=== PATIENT | female | born 1955 | race Caucasian/White ===

== ENCOUNTER 2021-03-31 07:48 | Observation (INO) | payer MEDICARE ==
[2021-03-26 11:48] LABS: BASOPHILS # (AUTO) 0.1 (0.0-0.1); BASOPHILS % 0.5 % (0.0-1.0); EOSINOPHILS # (AUTO) 0.3 (0.0-0.4); EOSINOPHILS % 2.6 % (0.0-6.0); HEMATOCRIT 39.9 % (34.2-44.1); HEMOGLOBIN 13.3 g/dL (12.0-16.0); LYMPHOCYTES # (AUTO) 2.2 (1.0-3.2); LYMPHOCYTES % 20.3 % (18.0-39.1); MEAN CORPUSCULAR HEMOGLOBIN 34.1 pg (28-32); MEAN CORPUSCULAR HGB CONC 33.3 g/dL (31-35); MEAN CORPUSCULAR VOLUME 102.3 fL (81-99); MONOCYTES # (AUTO) 0.7 (0.2-0.8); MONOCYTES % 5.9 % (4.4-11.3); NEUTROPHILS # (AUTO) 7.8 (2.1-6.9); NEUTROPHILS % 70.3 % (38.7-80.0); PLATELET COUNT 263 x10e3/uL (140-360); RED CELL DISTRIBUTION WIDTH 13.2 % (11.7-14.4)
[2021-03-26 14:50] LABS: ANION GAP 19.1 mmol/L (8-16); CALCIUM 9.3 mg/dL (8.4-10.2); CREATININE, SERUM 1.21 mg/dL (0.57-1.11); POTASSIUM 5.1 mmol/L (3.5-5.1)
[~2021-03-31] VITALS: Ht 172.7 cm; Wt 108.9 kg
[~2021-03-31 07:48] MED LIST: ALBUTEROL INH; BUSPIRONE HCL10 MG PO; DULERA 200 MCG/13 GM INH; EFFEXOR XR150 MG PO; GLIMEPIRIDE2 MG PO; HYDROCODON-ACE1 EAC9 PO; LISINOPRIL10 MG PO; MIRAPEX0.25 MG PO; MULTI-VITAMIN1 EACH PO; NEURONTIN300 MG PO; NORVASC10 MG PO; NUVIGIL250 MG PO; PRILOSEC OTC20 MG PO; SODIUM CHLORIDE 0.9% 500ML 500 ML ONE; SYNTHROID50 MCG PO; TIZANIDINE HCL4 M1 PO; TOPROL XL100 MG PO; TRANEXAMIC ACID 1,000 MG/10 ML ML ONE; TRAZODONE HCL100 MG PO; VANCOMYCIN HCL 1,000 MG ONE; ZOCOR40 MG PO
[2021-03-31] MEDS ORDERED: ROPIVACAINE 246.25 MG, EPINEPHRINE HCL 1:1000 1ML 0.5 MG, CLONIDINE HCL 0.08 MG in SODI... INJ ONE (08:00)
[2021-03-31] MEDS ORDERED: CELECOXIB 200 MG CAP ONE (08:23)
[2021-03-31] MEDS ORDERED: GABAPENTIN 300 MG CAP ONE (08:24)
[2021-03-31] MEDS ORDERED: DEXAMETHASONE SOD PHOS 10 MG/1 ML VIAL ONE (08:24)
[2021-03-31] MEDS ORDERED: CEFAZOLIN SOD 1 GM/NS 50ML 100 ML IV ONE (08:24)
[2021-03-31] MEDS ORDERED: TRANEXAMIC ACID 1,000 MG/10 ML ML ONE (09:00)
[2021-03-31] MEDS ORDERED: VANCOMYCIN HCL 1,000 MG ONE (09:00)
[2021-03-31] MEDS ORDERED: SODIUM CHLORIDE 0.9% 500ML 500 ML ONE (09:01)
[2021-03-31] MEDS ORDERED: DOCUSATE SODIUM 100 MG CAP PO PRN (11:15)
[2021-03-31] MEDS ORDERED: ONDANSETRON HCL INJ 2MG/ML 2ML 2 MG/ML VIAL IV PRN (11:15)
[2021-03-31] MEDS ORDERED: ACETAMINOPHEN 650 MG SUPP PR PRN (11:15)
[2021-03-31] MEDS ORDERED: HYDROCODONE/APAP 5MG-325MG TAB PO PRN (11:15)
[2021-03-31] MEDS ORDERED: KETOROLAC TROMETHAMINE 30 MG/ML VIAL IV PRN (11:15)
[2021-03-31] MEDS ORDERED: DIPHENHYDRAMINE HCL INJ 50 MG/ML VIAL IV PRN (11:15)
[2021-03-31] MEDS ORDERED: PROPOFOL IV EMULSION 10 MG/ML 20 ML VIAL ONE (11:30)
[2021-03-31] MEDS ORDERED: ROCURONIUM BROMIDE 10 MG/ML 5ML VIAL IV ONE (11:30)
[2021-03-31] MEDS ORDERED: DEXAMETHASONE SOD PHOS INJ 4 MG/ML VIAL ONE (11:30)
[2021-03-31] MEDS ORDERED: GLYCOPYRROLATE INJ 0.2 MG/ML VIAL ONE (11:30)
[2021-03-31] MEDS ORDERED: ONDANSETRON HCL INJ 2MG/ML 2ML 2 MG/ML VIAL ONE (11:30)
[2021-03-31] MEDS ORDERED: SEVOFLURANE INHAL SOLN 250 ML PEN BTL ONE (11:30)
[2021-03-31] MEDS ORDERED: NEOSTIGMINE 1 MG/ML 10ML VIAL ONE (11:30)
[2021-03-31] MEDS ORDERED: POVIDONE IODINE 0.05% 0.05 % ML PO ONE (11:30)
[2021-03-31] MEDS ORDERED: LIDOCAINE HCL 2% LOCAL INJ 5 ML SDV VIAL INJ ONE (11:30)
[2021-03-31] MEDS ORDERED: HYDROMORPHONE 1MG/1ML INJ ONE (11:48)
[2021-03-31] MEDS ORDERED: FENTANYL CITRATE/PF 100MCG/2 ML INJ ONE ×2 (12:04→14:28)
[2021-03-31 15:04] VITALS: BP 155/87
[2021-03-31 15:05] VITALS: BP 155/87
[2021-03-31 15:22] VITALS: BP 155/87
[2021-03-31] MEDS ORDERED: ACETAMINOPHEN 1000 MG/100 ML IV PRN (16:00)
[2021-03-31] MEDS: ASPIRIN 325 MG TAB PO SCH (16:16)
[2021-03-31] MEDS: CELECOXIB 100 MG CAP PO SCH (16:17)
[2021-03-31] MEDS: SODIUM CHLORIDE 0.9% 1000ML 1,000 ML IV SCH ×2 (16:41→21:15)
[2021-03-31] MEDS ORDERED: INSULIN LISPRO 100 UNIT/1 ML 3ML VIAL SQ ONE (17:00)
[2021-03-31] MEDS ORDERED: DEXTROSE 50% SYRINGE 50 ML IV PRN (17:00)
[2021-03-31] MEDS: CEFAZOLIN SOD 1 GM/NS 50ML 50 ML IV SCH (17:05)
[2021-03-31] MEDS: HYDROCODONE/APAP 7.5MG-325MG 1 EA TAB PO PRN ×2 (17:15→21:57)
[2021-03-31 20:00] VITALS: BP 150/78
[2021-03-31] MEDS ORDERED: ZOLPIDEM TARTRATE 5 MG TAB PO PRN (21:00)
[2021-03-31] MEDS: INSULIN LISPRO 100 UNIT/1 ML 3ML VIAL SQ SCH (22:05)
[2021-04-01] VITALS: BP 151/78
[2021-04-01] MEDS: CEFAZOLIN SOD 1 GM/NS 50ML 50 ML IV SCH ×2 (02:12→10:32)
[2021-04-01 04:00] VITALS: BP 163/82
[2021-04-01] MEDS: HYDROCODONE/APAP 7.5MG-325MG 1 EA TAB PO PRN (04:57)
[2021-04-01 05:18] LABS: HEMATOCRIT 36.4 % (34.2-44.1); HEMOGLOBIN 12.3 g/dL (12.0-16.0)
[2021-04-01] MEDS ORDERED: LEVOTHYROXINE SODIUM 25 MCG TABLET PO SCH (06:30)
[2021-04-01] MEDS: SODIUM CHLORIDE 0.9% 1000ML 1,000 ML IV SCH (07:15)
[2021-04-01] MEDS: CELECOXIB 100 MG CAP PO SCH (08:08)
[2021-04-01] MEDS: ASPIRIN 325 MG TAB PO SCH (08:09)
[2021-04-01] MEDS: INSULIN LISPRO 100 UNIT/1 ML 3ML VIAL SQ SCH (08:15)
[2021-04-01 08:57] VITALS: BP 158/78
[2021-04-01] MEDS ORDERED: METOPROLOL SUCCINATE 50 MG TAB XL PO SCH (09:00)
[2021-04-01] MEDS ORDERED: GABAPENTIN 300 MG CAP PO SCH (09:00)
[2021-04-01] MEDS ORDERED: AMLODIPINE BESYLATE 10 MG TAB PO SCH (09:00)
[2021-04-01] MEDS ORDERED: VENLAFAXINE HCL 75 MG CAPCR PO SCH (09:00)
[2021-04-01] MEDS ORDERED: LISINOPRIL 20 MG TAB PO SCH (09:00)
[2021-04-01 09:01] VITALS: BP 158/78
[2021-04-01] MEDS ORDERED: ONDANSETRON HCL 4 MG ORAL DISINTEGRATING TAB PO PRN (10:00)
[2021-04-01] MEDS ORDERED: SIMVASTATIN 40 MG TAB PO SCH (21:00)
== END 2021-04-01 11:47 | disposition home or self-care (01) ==
LOC: OR 07:48 → PACU V 11:04 → MED/SURG 14:56
PROVIDERS: ADMIT Specialist; ATTEND Specialist
DX: M17.12 Unilateral primary osteoarthritis, left knee (principal); Z01.812 Encounter for preprocedural laboratory examination; Z88.8 Allergy status to other drugs, medicaments and biological substances; E03.9 Hypothyroidism, unspecified; F41.9 Anxiety disorder, unspecified; G47.33 Obstructive sleep apnea (adult) (pediatric); M48.00 Spinal stenosis, site unspecified; E11.22 Type 2 diabetes mellitus with diabetic chronic kidney disease; I12.9 Hypertensive chronic kidney disease with stage 1 through stage 4 chronic kidney disease, or unspecified chronic kidney disease; N18.30 Chronic kidney disease, stage 3 unspecified; E78.5 Hyperlipidemia, unspecified; D64.9 Anemia, unspecified; Z91.040 Latex allergy status
CPT/HCPCS: 27447; 36415 ×3; 71046; 73560; 80048; 82948 ×2; 85014; 85018; 85025; 86850; 86900; 93005; 97116 ×2; 97161; 97530; C1713 ×2; C1776 ×4; G0378 ×2; J0171; J0690 ×2; J1100 ×2; J1170; J1885; J2001; J2405; J2704; J2710; J2795; J3010; J3370; J7030 ×2; J7040; 86920